=== PATIENT | female | born 1965 | race Caucasian/White ===

== ENCOUNTER 2022-11-11 17:56 | Emergency (ER) | payer OTHER, SELFPAY ==
[2022-11-11 18:02] VITALS: BP 140/64; PULSE 80; RESP 20; TEMP 37.3; O2SAT 95
--- NOTE | 2022-11-11 18:04 | ED.NAVMDI ---
HPI - Nausea/Vomiting/Diarrhea General Chief complaint: Nausea/Vomiting/Diarrhea Stated complaint: Diarrhea/Vomiting Time Seen by Provider: 11/11/22 18:05 Source: patient and RN notes reviewed History of Present Illness HPI Narrative: Patient is a 57-year-old female who presents to urgent care with complaints of nausea, vomiting and diarrhea. Patient states that they had a cookout barbecue this weekend and symptoms started Friday with nausea and vomiting. Patient states she vomited up until early this morning and started with loose stools approximately once per hour today. Patient has been taking TheraFlu for her headache. Currently denies any abdominal pain or urinary symptoms. No other acute complaints. No acute distress noted. Patient aware of the plan of care. Some parts of this dictation were generated by voice recognition software and may contain typographical and/or grammatical inaccuracies. Related Data Home Medications Medication Instructions Recorded Confirmed lisinopril 2.5 mg tablet mg 11/11/22 metformin 500 mg tablet,extended mg PO 11/11/22 release 24 hr Allergies Allergy/AdvReac Type Severity Reaction Status Date / Time latex Allergy Unknown Verified 07/17/17 13:11 Review of Systems Review of Systems: CONSTITUTIONAL: Denies fever, chills, or sweats. EYES: Denies visual changes, redness, or discharge. ENT: Denies rhinorrhea, congestion, sore throat, or otalgia. CARDIOVASCULAR: Denies chest pain, palpitations, or edema. RESPIRATORY: Denies cough or dyspnea. GASTROINTESTINAL: Reports of nausea, vomiting diarrhea without abdominal pain GENITOURINARY: Denies dysuria or hematuria. SKIN: Denies rash or itching. MUSCULOSKELETAL: Denies back pain, joint pain, or myalgia. NEUROLOGIC: Denies headache, numbness, or weakness. All other systems reviewed are negative, except as documented in HPI. PMFSH Social History Social History Smoking status: Never smoker Second hand tobacco smoke exposure: No Alcohol intake: never Comments At the time of my signature, I reviewed and agree with the nursing past medical, surgical, social, and family history. There is no relevant family history pertinent to the patient complaint. Exam Narrative: GENERAL: This is a well-nourished, well-developed patient, in no apparent distress. HEAD: normocephalic, atraumatic. EYES: PERRL. Sclera clear/white. Vision is grossly intact. EARS: External ears normal NOSE: External nose normal with no obvious nasal discharge, nares without redness, no rhinorrhea. THROAT: Mucous membranes moist NECK: Neck supple, RESPIRATORY: Clear to auscultation. Breath sounds equal bilaterally. No wheezes, rales, or rhonchi. GASTROINTESTINAL: Abdomen soft, mild right lower rebound tenderness, mild epigastric tenderness, nondistended. Bowel sounds are hyper active. No guarding. SKIN: warm, intact with no suspicious lesions or rash, good texture and turgor. NEURO: awake, alert, and oriented to person, place and time. There were no obvious focal neurologic abnormalities. EXTREMITIES: No clubbing, cyanosis, or edema. Course Course Level of Care: Express Care Visit Vital Signs Vital signs: Vital Signs Temperature 99.2 F 11/11/22 18:02 Pulse Rate 80 11/11/22 18:02 Respiratory Rate 20 11/11/22 18:02 Blood Pressure 140/64 11/11/22 18:02 Pulse Oximetry 95 11/11/22 18:02 Oxygen Delivery Room Air 11/11/22 18:02 Temperature 99.2 F 11/11/22 18:02 Pulse Rate 80 11/11/22 18:02 Respiratory Rate 20 11/11/22 18:02 Blood Pressure 140/64 11/11/22 18:02 Pulse Oximetry 95 11/11/22 18:02 Oxygen Delivery Room Air 11/11/22 18:02 Review MDM - Nausea/Vomiting/Diarrhea MDM Narrative Medical decision making narrative: Symptoms are consistent with a stomach virus. Advised patient to use [id number] Pepto-Bismol for symptom relief. Use Zofran as needed for nausea. Practice gut rest, brat diet, and incr
== END 2022-11-11 18:36 | disposition home or self-care (01) ==
PROVIDERS: Emergency Provider Nurse Practitioner Family; PCP Family Medicine
DX: A08.11 Acute gastroenteropathy due to Norwalk agent (principal); E11.9 Type 2 diabetes mellitus without complications
CPT/HCPCS: 99203; G0463